=== PATIENT | female | born 1930 | race Caucasian/White ===

== ENCOUNTER 2017-04-24 11:07 | Emergency (ER) | payer MEDICARE, OTHER ==
[2017-04-24 14:21] VITALS: BP 130/75
--- NOTE | 2017-04-24 14:32 | UC ---
Complaint Female HPI - HPI Summary HPI Summary: urinary pain and frequency times 1 day some generalized lower abd pain, no fever chills, nausea vomiting or back pain - History Of Current Complaint Hx Obtained From: Patient Hx Last Menstrual Period: n/a ?: No Onset/Duration: Sudden Onset, Lasting Days - 1, Still Present Severity Initially: Mild Severity Currently: Mild Aggravating Factor(s): Urination Alleviating Factor(s): Position Associated Signs And Symptoms: Positive: Negative <Joanne Claire - Last Filed: 04/24/17 20:47> <Arlet Ellis - Last Filed: 04/26/17 09:50> - History Of Current Complaint Chief Complaint: UCGU Stated Complaint: URINARY Time Seen by Provider: 04/24/17 14:06 - Allergies/Home Medications Allergies/Adverse Reactions: Allergies Allergy/AdvReac Type Severity Reaction Status Date / Time Penicillins Allergy Anaphylatic Verified 04/24/17 14:21 Shock Home Medications: Home Medications Atorvastatin* [Lipitor 20 MG*] 20 mg PO DAILY 04/24/17 [History Confirmed ] Cholecalciferol TAB* [Vitamin D TAB*] 1,000 unit PO DAILY 04/24/17 [History Confirmed 04/24/17] Levothyroxine TAB* [Synthroid 75 MCG TAB*] 112 mcg PO DAILY 04/24/17 [History Confirmed 04/24/17] Omeprazole CAP* [Prilosec CAP* 20 MG] 20 mg PO DAILY 04/24/17 [History Confirmed 04/24/17] PMH/Surg Hx/FS Hx/Imm Hx Previously Healthy: No Endocrine History: Hypothyroidism, Dyslipidemia GI/ History: Gastroesophageal Reflux - Surgical History Surgical History: Yes Surgery Procedure, Year, and Place: Brain surgery 2000. appendectomy. tonsillectomy - Family History Known Family History: Positive: None - Social History Occupation: Retired Lives: With Family Alcohol Use: None Substance Use Type: None Smoking Status (MU): Never Smoked Tobacco <Joanne Claire - Last Filed: 04/24/17 20:47> Review of Systems Constitutional: Negative Skin: Negative Eyes: Negative ENT: Negative Respiratory: Negative Cardiovascular: Negative Gastrointestinal: Negative Genitourinary: Frequency, Urgency Motor: Negative Neurovascular: Negative Musculoskeletal: Negative Neurological: Negative Psychological: Negative Is Patient Immunocompromised?: No All Other Systems Reviewed And Are Negative: Yes <Joanne Claire - Last Filed: 04/24/17 20:47> Physical Exam Triage Information Reviewed: Yes Appearance: Well-Appearing, No Pain Distress, Obese Vital Signs: Initial Vital Signs Temp 98.2 F 04/24/17 14:16 Pulse 111 04/24/17 14:16 Resp 20 04/24/17 14:16 BP 130/75 04/24/17 14:16 Pulse Ox 99 04/24/17 14:16 Vital Signs Reviewed: Yes Eye Exam: Normal Eyes: Positive: Conjunctiva Clear ENT Exam: Normal ENT: Positive: Normal ENT inspection, Hearing grossly normal. Negative: Nasal congestion, Nasal drainage, Trismus, Muffled voice, Hoarse voice Dental Exam: Normal Neck exam: Normal Neck: Positive: Supple, Nontender Respiratory Exam: Normal Respiratory: Positive: Chest non-tender, Lungs clear, Normal breath sounds, No respiratory distress, No accessory muscle use Cardiovascular Exam: Normal Cardiovascular: Positive: RRR, No Murmur, Pulses Normal, Brisk Capillary Refill Abdominal Exam: Normal Abdomen Description: Positive: Nontender, No Organomegaly, Soft. Negative: CVA Tenderness (R), CVA Tenderness (L), Distended, McBurney's Point Tenderness Bowel Sounds: Positive: Present Musculoskeletal Exam: Normal Musculoskeletal: Positive: Strength Intact, ROM Intact, Edema @ - chronic b/l pedal edema Neurological Exam: Normal Neurological: Positive: Alert Psychological Exam: Normal Skin Exam: Normal <Joanne Claire - Last Filed: 04/24/17 20:47> Vital Signs: Initial Vital Signs Temp 98.2 F 04/24/17 14:16 Pulse 111 04/24/17 14:16 Resp 20 04/24/17 14:16 BP 130/75 04/24/17 14:16 Pulse Ox 99 04/24/17 14:16 <Arlet Ellis - Last Filed: 04/26/17 09:50> Diagnostics - Laboratory Diagnostic Studies Completed/Ordered: +1 Leukoesterace, trace lysed blood <Joanne Claire - Last Filed: 04/24/17 20:47> Complaint Female Dx - Course Course Of Treatment: culture urine increase fluids, macrobid follow with pcp - Differential Dx/Diagnosis Provider Diagnoses: UTI <Joanne Claire - Last Filed: 04/24/17 20:47> Discharge <Joanne Claire - Last Filed: 04/24/17 20:47> <Arlet Ellis - Last Filed: 04/26/17 09:50> - Discharge Plan Condition: Stable Disposition: HOME Prescriptions: Nitrofurantoin Monohyd Macro [Macrobid] 100 mg PO BID #10 cap Patient Education Materials: Hematuria (ED), Urinary Traction Infection in Older Adults (ED) Referrals: Candi LARSON,Dayton Soria [Primary Care Provider] - 1 Week Attestation Statement User Type: Provider - I was available for consult. This patient was seen by the BRENDA. The patient was not presented to, seen by, or examined by me. -Maicol <Arlet Ellis - Last Filed: 04/26/17 09:50>
--- NOTE | 2017-04-27 07:08 | UC ---
- Progress Note Progress Note: ucx (-), can stop abx. Course/Dx - Course Course Of Treatment: culture urine increase fluids, macrobid follow with pcp
== END 2017-04-24 14:57 | disposition home or self-care (01) ==
LOC: UCCORT 11:07
DX: N39.0 Urinary tract infection, site not specified (principal); K21.9 Gastro-esophageal reflux disease without esophagitis
CPT/HCPCS: 81003; 87086; 99212; G0463

== ENCOUNTER 2019-03-25 08:27 | Emergency (ER) | payer MEDICARE ==
[2019-03-25 08:56] VITALS: BP 148/91
--- NOTE | 2019-03-25 09:13 | UC ---
Complaint Female HPI - HPI Summary HPI Summary: 89-year-old woman comes in with a chief complaint of right sided abdominal pain and right flank pain. Started at midnight. Pacer drink lots of water and that has decreased the pain. She does take a diuretic for pedal edema and so she reports that she urinates quite frequently and that she uses depends. She reports that the symptoms remind her of when she's had a urinary tract infection in the past. She had her appendix out years ago she still has her gallbladder. She has not eaten any food since the symptoms started. Pain is actually decreased with some pressure on the abdomen. - History Of Current Complaint Chief Complaint: UCAbdominalPain Stated Complaint: RIGHT SIDE PAIN Time Seen by Provider: 03/25/19 08:48 Hx Last Menstrual Period: n/a Pain Intensity: 5 - Allergies/Home Medications Allergies/Adverse Reactions: Allergies Allergy/AdvReac Type Severity Reaction Status Date / Time Penicillins Allergy Severe Anaphylatic Verified 03/25/19 08:52 Shock levothyroxine sodium Allergy Unknown Rash And Verified 03/25/19 08:56 [From Synthroid] Itching PMH/Surg Hx/FS Hx/Imm Hx Previously Healthy: Yes Endocrine History: Hypothyroidism, Dyslipidemia GI/ History: Gastroesophageal Reflux - Surgical History Surgical History: Yes Surgery Procedure, Year, and Place: Brain surgery 2000. appendectomy. tonsillectomy - Family History Known Family History: Positive: Non-Contributory - Social History Alcohol Use: None Substance Use Type: None Smoking Status (MU): Never Smoked Tobacco Review of Systems All Other Systems Reviewed And Are Negative: Yes Constitutional: Positive: Other - SEE HPI Skin: Positive: Negative Eyes: Positive: Negative ENT: Positive: Negative Respiratory: Positive: Negative Cardiovascular: Positive: Negative Gastrointestinal: Positive: Other - SEE HPI Genitourinary: Positive: Other - SEE HPI Motor: Positive: Negative Neurovascular: Positive: Negative Musculoskeletal: Positive: Negative Neurological: Positive: Negative Psychological: Positive: Negative Is Patient Immunocompromised?: No Physical Exam Triage Information Reviewed: Yes Appearance: Well-Appearing, No Pain Distress, Well-Nourished Vital Signs: Initial Vital Signs Temp 98.8 F 03/25/19 08:51 Pulse 77 03/25/19 08:51 Resp 16 03/25/19 08:51 BP 148/91 03/25/19 08:51 Pulse Ox 97 03/25/19 08:51 Vital Signs Reviewed: Yes Eye Exam: Normal Eyes: Positive: Conjunctiva Clear Neck: Positive: Supple Respiratory: Positive: Lungs clear, Normal breath sounds, No respiratory distress Cardiovascular: Positive: RRR Abdomen Description: Positive: Other: - Mild right-sided abdominal tenderness to palpation no rebound.. Negative: CVA Tenderness (R), CVA Tenderness (L) Bowel Sounds: Positive: Present Musculoskeletal: Positive: Strength Intact, ROM Intact Neurological: Positive: Alert, Muscle Tone Normal Psychological: Positive: Age Appropriate Behavior Skin Exam: Normal Complaint Female Dx - Course Course Of Treatment: Patient reports the symptoms remind her of urinary tract infection. In May 2018 patient was treated with nitrofurantoin and patient reports she improved therefore we will treat with nitrofurantoin again for 5 days. Urine culture is pending. I let the patient know that if she did not improve or if she worsens that she needed further evaluation in the emergency department. - Differential Dx/Diagnosis Provider Diagnosis: UTI (urinary tract infection), Right sided abdominal pain Discharge ED - Sign-Out/Discharge Documenting (check all that apply): Patient Departure All imaging exams completed and their final reports reviewed: No Studies - Discharge Plan Condition: Stable Disposition: HOME Prescriptions: Nitrofurantoin Monohyd/M-Cryst [Macrobid 100 mg Capsule] 100 mg PO BID #10 cap Patient Education Materials: Urinary Tract Infection in Women (ED), Acute Abdominal Pain (ED) Referrals: Dayton Christopher PA [Primary Care Provider] - Additional Instructions: FOLLOW UP WITH YOUR DOCTOR IF NOT COMPLETELY IMPROVED. GO TO THE EMERGENCY DEPARTMENT IF NOT IMPROVING OR WORSE; PAIN, FEVER, YOU FEEL ILL OR ANY QUESTIONS OR CONCERNS. - Billing Disposition and Condition Condition: STABLE Disposition: Home
== END 2019-03-25 09:25 | disposition home or self-care (01) ==
LOC: UCCORT 08:27
DX: N39.0 Urinary tract infection, site not specified (principal); R10.9 Unspecified abdominal pain; Z88.0 Allergy status to penicillin; Z88.8 Allergy status to other drugs, medicaments and biological substances
CPT/HCPCS: 81003; 87086; 99212; G0463